=== PATIENT | female | born 1945 | race Caucasian/White ===

== ENCOUNTER 2024-01-12 17:28 | Emergency (ER) | payer OTHER ==
[~2024-01-12] VITALS: Ht 162.5 cm; Wt 54.4 kg
[~2024-01-12 17:28] MED LIST: DAYPRO600 M1 PO; ROBAXIN750 MG PO
[2024-01-12] MEDS ORDERED: FLUORESCEIN SODIUM 1 MG STRIP OPH ONE (17:50)
[2024-01-12] MEDS ORDERED: CIPROFLOXACIN HC5 ML OPH (17:52)
== END 2024-01-12 18:10 | disposition home or self-care (01) ==
LOC: ED 17:28
DX: S05.02XA Injury of conjunctiva and corneal abrasion without foreign body, left eye, initial encounter (principal); W22.8XXA Striking against or struck by other objects, initial encounter; Y93.H2 Activity, gardening and landscaping; Y92.009 Unspecified place in unspecified non-institutional (private) residence as the place of occurrence of the external cause; Y99.8 Other external cause status